=== PATIENT | male | born 1945 | race African-American/Black ===

== ENCOUNTER 2019-04-01 18:12 | Emergency (ER) | payer MEDICARE, MEDICAID ==
[~2019-04-01] VITALS: Ht 172.7 cm; Wt 82.0 kg
[2019-04-01 22:07] VITALS: BP 125/83
== END 2019-04-01 22:10 | disposition home or self-care (01) ==
LOC: ER 18:12
DX: Z00.00 Encounter for general adult medical examination without abnormal findings (principal); I25.10 Atherosclerotic heart disease of native coronary artery without angina pectoris; J44.9 Chronic obstructive pulmonary disease, unspecified; I10 Essential (primary) hypertension; E78.00 Pure hypercholesterolemia, unspecified; E05.90 Thyrotoxicosis, unspecified without thyrotoxic crisis or storm; H40.9 Unspecified glaucoma; F03.90 Unspecified dementia, unspecified severity, without behavioral disturbance, psychotic disturbance, mood disturbance, and anxiety
CPT/HCPCS: 99283